=== PATIENT | female | born 1975 | race Caucasian/White ===

== ENCOUNTER 2016-10-08 18:19 | Emergency (ER) | payer MEDICAID ==
[~2016-10-08] VITALS: Ht 154.9 cm; Wt 61.8 kg
[~2016-10-08 18:19] MED LIST: CEPH500 PO; SULF-168 PO
[2016-10-08 21:08] LABS: BASOPHILS % (AUTO) 0.5 % (0.0-2.0); EOSINOPHILS % (AUTO) 1.7 % (1.0-6.0); HEMATOCRIT 43.4 % (36-46); HEMOGLOBIN 14.1 g/dL (12.0-16.0); LYMPHOCYTES # (AUTO) 2.9 K/uL (1.0-4.8); LYMPHOCYTES % (AUTO) 17.7 % (22.0-44.0); MEAN CORPUSCULAR HEMOGLOBIN 29.3 pg (26.0-34.0); MEAN CORPUSCULAR HGB CONC 32.5 G/dL (31.0-37.0); MEAN CORPUSCULAR VOLUME 90 fL (80-100); MONOCYTES # (AUTO) 0.7 K/uL (0.1-1.0); NEUTROPHILS # (AUTO) 12.4 K/uL (1.8-7.7); NEUTROPHILS % (AUTO) 76.1 % (40.0-70.0); PLATELET COUNT (AUTO) 240 K/uL (150-450); RED BLOOD CELL COUNT(AUTO) 4.81 MIL/uL (4.00-5.20); RED CELL DISTRIBUTION WIDTH 13.4 % (11.5-14.5); WHITE BLOOD COUNT (AUTO) 16.3 K/uL (4.5-11.0)
[2016-10-08 21:17] LABS: ANION GAP 10 mmol/L (8-16); CALCIUM, TOTAL 9.1 mg/dL (8.8-10.5); CARBON DIOXIDE 25 mmol/L (22-29); CHLORIDE 104 mmol/L (98-107); CREATININE 0.51 mg/dL (0.60-1.30); GLOMERULAR FILTR. RATE CALC > 60 mL/min (>60); POTASSIUM 4.1 mmol/L (3.5-5.1); SODIUM SERUM 139 mmol/L (136-145); UREA NITROGEN, BLOOD 6 mg/dL (7-18)
[2016-10-08 21:42] LABS: ALANINE AMINOTRANSFERASE 31 U/L (12-78); ALBUMIN 3.9 g/dL (3.4-5.0); ASPARTATE AMINOTRANSFERASE 15 U/L (15-37); BILIRUBIN,TOTAL 0.4 mg/dL (0.1-1.0); CREATINE KINASE MB 0.9 ng/mL (0-5); CREATINE KINASE, TOTAL 84 U/L (26-192); TOTAL PROTEIN, SERUM 7.7 g/dL (6.4-8.2)
[2016-10-08 22:43] LABS: APPEARANCE,URINE CLEAR (CLEAR); GLUCOSE, URINE (UA) NEGATIVE (NEGATIVE); KETONES,URINE NEGATIVE (NEGATIVE); LEUKOCYTE ESTERASE ,URINE NEGATIVE (NEGATIVE); OCCULT BLOOD,URINE NEGATIVE (NEGATIVE); PH,URINE 6.5 (5.0-8.0); PROTEIN,URINE NEGATIVE (NEGATIVE)
[2016-10-08 22:45] LABS: ADD UA MICROSCOPIC NO
[2016-10-08] MEDS ORDERED: LEVOFLOXACIN 500 MG TABLET PO ONE (23:00)
[2016-10-08 23:15] VITALS: BP 128/66
== END 2016-10-08 23:15 | disposition home or self-care (01) ==
LOC: EMS 18:28
DX: J40 Bronchitis, not specified as acute or chronic (principal); J06.9 Acute upper respiratory infection, unspecified; Z88.0 Allergy status to penicillin; F17.210 Nicotine dependence, cigarettes, uncomplicated
CPT/HCPCS: 71020; 93005; 99285

== ENCOUNTER 2018-03-06 18:42 | Emergency (ER) | payer MEDICAID ==
[~2018-03-06] VITALS: Ht 149.9 cm; Wt 63.6 kg
[2018-03-06] MEDS ORDERED: ACETAMINOPHEN 500 MG TABLET PO ONE (21:00)
[2018-03-06] MEDS ORDERED: POVIDONE-IODINE 10% 15 ML SOLUTION UD TP ONE (21:00)
[2018-03-06] MEDS ORDERED: LIDOCAINE 1% 10 ML VIAL INJ ONE (21:00)
[2018-03-06 21:03] VITALS: BP 115/52
[2018-03-06] MEDS ORDERED: CLINDAMYCIN HCL 150 MG CAPSULE PO ONE (21:15)
== END 2018-03-06 21:51 | disposition home or self-care (01) ==
LOC: EMS 18:42
DX: L02.416 Cutaneous abscess of left lower limb (principal); L03.116 Cellulitis of left lower limb; F17.210 Nicotine dependence, cigarettes, uncomplicated
CPT/HCPCS: 10060; 99284; 99406; J3490

== ENCOUNTER 2018-03-08 10:19 | Emergency (ER) | payer MEDICAID ==
[~2018-03-08] VITALS: Ht 134.6 cm; Wt 66.4 kg
[2018-03-08 10:25] VITALS: BP 132/78
== END 2018-03-08 12:47 | disposition home or self-care (01) ==
LOC: EMS 10:20
DX: L02.416 Cutaneous abscess of left lower limb (principal); F17.210 Nicotine dependence, cigarettes, uncomplicated; Z48.00 Encounter for change or removal of nonsurgical wound dressing; Z88.0 Allergy status to penicillin
CPT/HCPCS: 99281

== ENCOUNTER 2018-04-08 09:05 | Emergency (ER) | payer MEDICAID ==
[~2018-04-08] VITALS: Ht 154.9 cm; Wt 72.7 kg
[2018-04-08 09:54] VITALS: BP 145/78
== END 2018-04-08 10:05 | disposition home or self-care (01) ==
LOC: EMS 09:07
DX: H60.02 Abscess of left external ear (principal); F17.210 Nicotine dependence, cigarettes, uncomplicated; Z88.0 Allergy status to penicillin

== ENCOUNTER 2018-07-21 18:20 | Inpatient (IN) | payer MEDICAID ==
[~2018-07-21] VITALS: Ht 154.9 cm; Wt 72.7 kg
[2018-07-21 20:00] LABS: BASOPHILS % (AUTO) 0.4 % (0.0-2.0); EOSINOPHILS % (AUTO) 0.3 % (1.0-6.0); HEMATOCRIT 39.9 % (36-46); HEMOGLOBIN 13.5 g/dL (12.0-16.0); LYMPHOCYTES # (AUTO) 2.5 K/uL (1.0-4.8); LYMPHOCYTES % (AUTO) 12.5 % (22.0-44.0); MEAN CORPUSCULAR VOLUME 88 fL (80-100); MONOCYTES # (AUTO) 0.9 K/uL (0.1-1.0); MONOCYTES % (AUTO) 4.4 % (2.0-9.0); NEUTROPHILS # (AUTO) 16.7 K/uL (1.8-7.7); NEUTROPHILS % (AUTO) 82.4 % (40.0-70.0); PLATELET COUNT (AUTO) 227 K/uL (150-450); RED BLOOD CELL COUNT(AUTO) 4.52 MIL/uL (4.00-5.20); RED CELL DISTRIBUTION WIDTH 13.1 % (11.5-14.5)
[2018-07-21] MEDS ORDERED: ONDANSETRON HCL 4 MG/2 ML VIAL IVP ONE (20:00)
[2018-07-21] MEDS ORDERED: SODIUM CHLORIDE 0.9% 1,000 ML IV ONE ×2 (20:00→23:15)
[2018-07-21] MEDS ORDERED: KETOROLAC TROMETHAMINE 30 MG/ML VIAL IVP ONE (20:00)
[2018-07-21 20:13] LABS: ANION GAP 11 mmol/L (8-16); CALCIUM, TOTAL 9.5 mg/dL (8.8-10.5); CARBON DIOXIDE 22 mmol/L (22-29); CHLORIDE 100 mmol/L (98-107); CREATININE 0.54 mg/dL (0.60-1.30); GLOMERULAR FILTR. RATE CALC > 60 mL/min (>60); GLUCOSE,RANDOM 123 mg/dL (70-110); POTASSIUM 3.7 mmol/L (3.5-5.1); SODIUM SERUM 133 mmol/L (136-145); UREA NITROGEN, BLOOD 13 mg/dL (7-18)
[2018-07-21 20:19] LABS: ALANINE AMINOTRANSFERASE 33 U/L (12-78); ALBUMIN 3.9 g/dL (3.4-5.0); ALKALINE PHOSPHATASE 70 U/L (46-116); ASPARTATE AMINOTRANSFERASE 18 U/L (15-37); BILIRUBIN,TOTAL 0.4 mg/dL (0.1-1.0); LIPASE 234 U/L (73-393); TOTAL PROTEIN, SERUM 7.9 g/dL (6.4-8.2)
[2018-07-21] MEDS ORDERED: IOVERSOL 320 MG/ML 100 ML VIAL ONE (20:32)
[2018-07-21] MEDS ORDERED: SODIUM CHLORIDE 0.9% 0 ML ONE (20:32)
[2018-07-21 20:57] LABS: HCG,QUANTITATIVE < 1 mIU/mL (0-6)
[2018-07-21 21:12] LABS: APPEARANCE,URINE CLEAR (CLEAR); BILIRUBIN,URINE NEGATIVE (NEGATIVE); GLUCOSE, URINE (UA) NEGATIVE (NEGATIVE); KETONES,URINE 15 mg/dL (NEGATIVE); LEUKOCYTE ESTERASE ,URINE NEGATIVE (NEGATIVE); NITRATE,URINE NEGATIVE (NEGATIVE); OCCULT BLOOD,URINE NEGATIVE (NEGATIVE); PH,URINE 7.5 (5.0-8.0); PROTEIN,URINE NEGATIVE (NEGATIVE); UROBILINOGEN,URINE 0.2 mg/dL (<=1.0)
[2018-07-21] MEDS ORDERED: HYDROmorphone 2 MG/ML SYRINGE IVP PRN (23:15)
[2018-07-21] MEDS ORDERED: LEVOFLOXACIN 500 MG/D5% WATER 100 ML IV ONE (23:15)
[2018-07-21] MEDS ORDERED: ACETAMINOPHEN 325 MG TABLET PO PRN (23:15)
[2018-07-21] MEDS ORDERED: ONDANSETRON HCL 4 MG/2 ML VIAL IVP PRN (23:15)
[2018-07-21] MEDS ORDERED: 0.9% SODIUM CHLORIDE 10 ML SYRINGE IVP PRN (23:15)
[2018-07-21] MEDS ORDERED: OxyCODONE HCL/ACETAMINOPHEN 5-325 MG TABLET PO PRN (23:15)
[2018-07-22 00:26] VITALS: BP 111/65
[2018-07-22 05:19] VITALS: BP 98/46
[2018-07-22 06:17] LABS: BASOPHILS % (AUTO) 0.1 % (0.0-2.0); EOSINOPHILS % (AUTO) 0.2 % (1.0-6.0); HEMATOCRIT 38.2 % (36-46); HEMOGLOBIN 12.9 g/dL (12.0-16.0); MEAN CORPUSCULAR HEMOGLOBIN 30.4 pg (26.0-34.0); MEAN CORPUSCULAR HGB CONC 33.8 G/dL (31.0-37.0); MEAN CORPUSCULAR VOLUME 90 fL (80-100); MONOCYTES % (AUTO) 6.1 % (2.0-9.0); NEUTROPHILS # (AUTO) 13.8 K/uL (1.8-7.7); NEUTROPHILS % (AUTO) 81.6 % (40.0-70.0); PLATELET COUNT (AUTO) 192 K/uL (150-450); RED BLOOD CELL COUNT(AUTO) 4.25 MIL/uL (4.00-5.20); RED CELL DISTRIBUTION WIDTH 13.2 % (11.5-14.5)
[2018-07-22 06:34] LABS: ALANINE AMINOTRANSFERASE 44 U/L (12-78); ALBUMIN 3.1 g/dL (3.4-5.0); ALKALINE PHOSPHATASE 63 U/L (46-116); ANION GAP 11 mmol/L (8-16); ASPARTATE AMINOTRANSFERASE 27 U/L (15-37); BILIRUBIN,TOTAL 0.5 mg/dL (0.1-1.0); CALCIUM, TOTAL 8.5 mg/dL (8.8-10.5); CARBON DIOXIDE 23 mmol/L (22-29); CHLORIDE 108 mmol/L (98-107); GLOMERULAR FILTR. RATE CALC > 60 mL/min (>60); GLUCOSE,RANDOM 99 mg/dL (70-110); POTASSIUM 3.9 mmol/L (3.5-5.1); SODIUM SERUM 142 mmol/L (136-145); TOTAL PROTEIN, SERUM 6.6 g/dL (6.4-8.2); UREA NITROGEN, BLOOD 7 mg/dL (7-18)
[2018-07-22 08:13] VITALS: BP 99/70
[2018-07-22] MEDS ORDERED: MORPHINE SULFATE 2 MG/ML SYRINGE IVP PRN (08:45)
[2018-07-22] MEDS ORDERED: *CLINICAL-LEVOFLOXACIN IVPB DOSING CLINICAL ONE (08:45)
[2018-07-22] MEDS ORDERED: ACETAMINOPHEN 325 MG TABLET PO PRN ×2 (08:45→13:15)
[2018-07-22] MEDS ORDERED: ONDANSETRON HCL 4 MG/2 ML VIAL IVP PRN (08:45)
[2018-07-22] MEDS ORDERED: MAGNESIUM HYDROXIDE SUSPENSION 30 ML UDCUP PO PRN (08:45)
[2018-07-22 11:05] VITALS: BP 125/61
[2018-07-22] MEDS ORDERED: DEXAMETHASONE SOD PHOS 4 MG/ML VIAL IVP ONE (12:00)
[2018-07-22] MEDS ORDERED: PROPOFOL 1% 20 ML VIAL IVP ONE (12:00)
[2018-07-22] MEDS ORDERED: KETAMINE HCL 50 MG/ML 10 ML VIAL IVP ONE (12:00)
[2018-07-22] MEDS ORDERED: 0.9% SODIUM CHLORIDE 10 ML VIAL IVP ONE (12:00)
[2018-07-22] MEDS ORDERED: LIDOCAINE/PF 2% 5 ML VIAL INJ ONE (12:00)
[2018-07-22] MEDS ORDERED: MIDAZOLAM HCL 2 MG/2 ML VIAL IVP ONE (12:00)
[2018-07-22] MEDS ORDERED: ONDANSETRON HCL 4 MG/2 ML VIAL IVP ONE (12:00)
[2018-07-22] MEDS ORDERED: KETOROLAC TROMETHAMINE 60 MG/2 ML VIAL IM ONE (12:00)
[2018-07-22] MEDS: DEXTROSE 5%-0.45% SODIUM CHL 1,000 ML IV SCH ×2 (12:16→21:15)
[2018-07-22] MEDS: MetroNIDAZOLE 500 MG/NACL 100 ML IV SCH ×2 (12:17→17:40)
[2018-07-22] MEDS: DOCUSATE SODIUM 100 MG CAPSULE PO SCH ×2 (12:17→20:39)
[2018-07-22] MEDS: PANTOPRAZOLE SODIUM 40 MG/VIAL IVP SCH (12:17)
[2018-07-22] MEDS ORDERED: ACETAMINOPHEN 1000 MG/ISO-OSM 100 ML IV ONE (14:41)
[2018-07-22] MEDS ORDERED: SUGAMMADEX SODIUM 200 MG/2 ML VIAL IVP ONE (14:48)
[2018-07-22] MEDS ORDERED: BUPIVACAINE 0.25%/EPI 1:200,000/PF 10 ML VIAL ONE (15:07)
[2018-07-22] MEDS ORDERED: SODIUM CHLORIDE 0.9% 1,000 ML IV ONE (15:08)
[2018-07-22] MEDS ORDERED: SODIUM CL IRRIG SOLN BAG 3,000 ML IRRIG ONE (15:08)
[2018-07-22] MEDS ORDERED: MEPERIDINE-PF 25 MG/ML VIAL IVP PRN (16:00)
[2018-07-22] MEDS ORDERED: OxyCODONE HCL/ACETAMINOPHEN 10-325 MG TABLET PO PRN (16:00)
[2018-07-22] MEDS ORDERED: FentaNYL CITRATE-PF 100 MCG/2 ML VIAL IVP PRN (16:00)
[2018-07-22] MEDS ORDERED: HYDROmorphone 2 MG/ML SYRINGE IVP PRN (16:00)
[2018-07-22] MEDS ORDERED: RINGERS SOLUTION,LACTATED 1,000 ML IV ONE (16:04)
[2018-07-22] MEDS ORDERED: ACETAMINOPHEN 1000 MG/ISO-OSM 100 ML IV PRN (16:15)
[2018-07-22 17:30] VITALS: BP 129/75
[2018-07-22] MEDS ORDERED: LEVOFLOXACIN 500 MG/D5% WATER 100 ML IV SCH (18:00)
[2018-07-22] MEDS: ACETAMINOPHEN 500 MG TABLET PO SCH (20:39)
[2018-07-22 20:45] VITALS: BP 111/62
[2018-07-23] MEDS: KETOROLAC TROMETHAMINE 15 MG/ML VIAL IVP SCH ×3 (00:20→11:22)
[2018-07-23 00:28] VITALS: BP 113/56
[2018-07-23] MEDS: MetroNIDAZOLE 500 MG/NACL 100 ML IV SCH ×3 (00:30→15:20)
[2018-07-23 05:47] VITALS: BP 120/72
[2018-07-23] MEDS: ACETAMINOPHEN 500 MG TABLET PO SCH ×2 (06:06→11:22)
[2018-07-23 07:39] VITALS: BP 108/53
[2018-07-23] MEDS: HYDROmorphone 2 MG/ML SYRINGE IVP PRN ×2 (07:44→15:04)
[2018-07-23] MEDS: PANTOPRAZOLE SODIUM 40 MG/VIAL IVP SCH (07:44)
[2018-07-23] MEDS: DOCUSATE SODIUM 100 MG CAPSULE PO SCH (07:44)
[2018-07-23 13:26] VITALS: BP 115/67
[2018-07-23] MEDS ORDERED: DOCU100C33 PO (14:37)
[2018-07-23] MEDS ORDERED: HYDR-4061 PO (14:37)
[2018-07-23 16:24] VITALS: BP 121/74
== END 2018-07-23 17:34 | disposition home or self-care (01) | DRG 263 ==
LOC: EMS 18:21 → 6N 23:00
PROVIDERS: ADMIT Internal Medicine; ATTEND Internal Medicine
PROC: 0FT44ZZ Resection of Gallbladder, Percutaneous Endoscopic Approach (ICD-10-PCS; principal; 2018-07-22 15:33)
DX: K80.00 Calculus of gallbladder with acute cholecystitis without obstruction (principal); R65.10 Systemic inflammatory response syndrome (SIRS) of non-infectious origin without acute organ dysfunction; F17.210 Nicotine dependence, cigarettes, uncomplicated; Z88.0 Allergy status to penicillin
CPT/HCPCS: 74176; 76700; 83605; 87040; 87081; 88304; 93005; 96365; 96375; C9113; G0378; J0131; J0690; J1100; J1170; J1885; J1956; J2250; J2405; J2704; J3490; J7030; J7050; J7120